=== PATIENT | female | born 1990 | race Caucasian/White ===

== ENCOUNTER → 2020-02-06 10:21 | Outpatient (CLI) | payer OTHER, SELFPAY ==
--- NOTE | ~2020-02-06 | US_ITS ---
EXAMINATION: US transvaginal DATE: 02/06/2020 10:42 INDICATION: Missing IUD strings TECHNIQUE: Multiple transabdominal and endovaginal sonographic images of the pelvis were obtained. COMPARISON: None. FINDINGS: The uterus measures 6.8 x 2.5 x 3.6 cm. A linear echogenic and shadowing IUD is seen centered within the endometrial complex which measures 5 mm in thickness. The right ovary measures 3.2 x 2.1 x 1.8 cm . The left ovary measures 2.5 x 1.9 x 1.5 cm. There is normal vascular flow in the ovaries. There is no free fluid in the pelvis. IMPRESSION: 1. Normal pelvic ultrasound with IUD in expected position within the endometrial canal. Reviewed, dictated and finalized at [facility]. NING AND DEVELOPMENT SPECIALIST IMPRESSION: 1. Normal pelvic ultrasound with IUD in expected position within the endometria l canal.
== END ==
PROVIDERS: Visit Provider Nurse Practitioner
DX: Z30.431 Encounter for routine checking of intrauterine contraceptive device (principal)
CPT/HCPCS: 76830

== ENCOUNTER 2021-03-06 16:20 | Outpatient (CLI) | payer OTHER, SELFPAY ==
--- NOTE | ~2021-03-06 | US_ITS ---
EXAMINATION: US pelvic complete w TV DATE: 03/06/2021 17:17 INDICATION: Pelvic pain Comparison:02/06/2020 TECHNIQUE: Multiple transabdominal and endovaginal sonographic images of the pelvis performed. FINDINGS: The uterus measures 7.2 x 3.9 x 3 cm. There is an IUD in the endometrium. The endometrial c omplex measures 4 mm. The right ovary measures 2.3 x 3.1 x 1.5 cm and the left ovary measures 2.4 x 2.9 x 1.5 cm. There ar e small follicles in each ovary. Normal doppler signal in both ovaries. There is no free fluid in the pelvis. There are no abnormal masses seen on either side. IMPRESSION: 1. Unremarkable pelvic ultrasound. IUD in expected position. Reviewed, dictated and finalized at location A. YOLOGY PROFESSOR
== END 2021-03-06 16:21 | disposition home or self-care (01) ==
LOC: ANHIMG 16:26
PROVIDERS: PCP Physician Assistant Medical; Visit Provider Nurse Practitioner
DX: R10.2 Pelvic and perineal pain (principal); Z97.5 Presence of (intrauterine) contraceptive device
CPT/HCPCS: 76830; 76856

== ENCOUNTER 2022-01-16 08:32 | Outpatient (CLI) | payer OTHER, SELFPAY ==
[2022-01-16 09:24] LABS: Basophils Absolute Auto 0.1 K/mm3 (0.0-0.1); Basophils Percent Auto 0.6 % (0.2-1.2); Eosinophils Absolute Auto 0.2 K/mm3 (0-0.3); Eosinophils Percent Auto 2.7 % (0-4.4); Hematocrit 39.8 % (37.0-47.0); Hemoglobin 13.6 g/dL (12.0-15.0); Immature Granulocyte Absolute 0.03 K/mm3 (0.00-0.031); Immature Granulocyte Percent A 0.3 % (0-0.5); Lymphocytes Absolute Auto 2.74 K/mm3 (0.9-3.2); Lymphocytes Percent Auto 31.2 % (18.3-44.2); Mean Corpuscular HGB Conc 34.2 g/dl (32-36); Mean Corpuscular Hemoglobin 29.2 pg (26-34); Mean Corpuscular Volume 85.4 fl (80-100); Mean Platelet Volume 11.2 fl (7.4-10.4); Monocytes Absolute Auto 0.6 K/mm3 (0.1-0.6); Monocytes Percent Auto 7.3 % (2.6-8.5); Neutrophils Absolute Auto 5.1 K/mm3 (1.3-6.7); Neutrophils Percent Auto 57.9 % (45.5-73.1); Platelet Count Result 277 k/mm3 (150-375); Red Blood Count 4.66 M/mm3 (4.2-5.4); Red Cell Distribution Width 12.3 % (11.5-14.5); White Blood Count 8.8 K/mm3 (4.5-10.0)
[2022-01-16 09:36] LABS: Anion Gap 10 mmol/L (8-16); Blood Urea Nitrogen 12 mg/dL (7-17); Carbon Dioxide 28 mmol/L (22-30); Chloride 101 mmol/L (98-107); Cholesterol 172 mg/dL (0-200); Estimated Glomerular Filt Rate > 60; Glucose 99 mg/dL (65-110); HDL Direct 42 mg/dL; Potassium 4.1 mmol/L (3.4-5.0); Sodium 139 mmol/L (137-145); Triglycerides 119 mg/dL (<150)
[2022-01-16 09:46] LABS: LDL Cholesterol Direct 96 mg/dL
== END 2022-01-16 08:33 | disposition home or self-care (01) ==
LOC: ANHLAB 08:33
PROVIDERS: PCP Family Medicine; Visit Provider Physician Assistant Medical
DX: R00.2 Palpitations (principal); Z13.220 Encounter for screening for lipoid disorders
CPT/HCPCS: 36415; 80048; 80061; 84443; 85025

== ENCOUNTER 2022-06-12 13:08 | Outpatient (CLI) | payer OTHER, SELFPAY ==
--- NOTE | ~2022-06-12 | US_ITS ---
Pelvic ultrasound. Clinical History: IUD Technique: Realtime transabdominal and transvaginal scanning of the pelvis was performed. Color flow Doppler and Doppler spectral analysis were performed. Findings: The uterus is anteverted. IUD in satisfactory position. The endometrial stripe has a thickn ess of 3 mm. No focal mass is identified. The right ovary measures 2.6 x 1.2 x 1.6 cm. No significant right ovarian or adnexal mass is seen. The left ovary measures 2.7 x 1.9 x 1.9 cm. No significant left ovarian or adnexal mass is seen. Vascular flow present in both ovaries on Doppler spectral analysis. There is no evidence of free fluid in the cul de sac. Impression: IUD in satisfactory position. Reviewed, dictated and finalized at [facility]. Impression: IUD in satisfactory position.
[2022-06-12 14:54] LABS: HIV 1/2 Ab P24 Ag Result Negative (Negative)
[2022-06-12 15:09] LABS: Rapid Plasma Reagin Non-Reactive (NonReactive)
[2022-06-12 16:48] LABS: Hepatitis B Surface Antigen Negative (Negative)
[2022-06-12 16:54] LABS: HAV RESULT Negative (Negative); Hepatitis B Core IgM Result Negative (Negative)
[2022-06-12 17:06] LABS: Hepatitis C Virus Antibody Negative (Negative)
== END 2022-06-12 13:09 | disposition home or self-care (01) ==
PROVIDERS: PCP Family Medicine; Visit Provider Nurse Practitioner
DX: Z11.3 Encounter for screening for infections with a predominantly sexual mode of transmission (principal); Z97.5 Presence of (intrauterine) contraceptive device
CPT/HCPCS: 36415; 76830; 76856; 80074; 86592; 86703; G0432

== ENCOUNTER 2023-01-15 08:15 | Outpatient (CLI) | payer OTHER, SELFPAY ==
[2023-01-15 08:55] LABS: Basophils Absolute Auto 0.1 K/mm3 (0.0-0.1); Basophils Percent Auto 0.7 % (0.2-1.2); Eosinophils Absolute Auto 0.2 K/mm3 (0-0.3); Eosinophils Percent Auto 2.6 % (0-4.4); Hematocrit 41.3 % (37.0-47.0); Hemoglobin 13.6 g/dL (12.0-15.0); Immature Granulocyte Absolute 0.03 K/mm3 (0.00-0.031); Immature Granulocyte Percent A 0.4 % (0-0.5); Lymphocytes Absolute Auto 2.27 K/mm3 (0.9-3.2); Lymphocytes Percent Auto 31.6 % (18.3-44.2); Mean Corpuscular HGB Conc 32.9 g/dl (32-36); Mean Corpuscular Hemoglobin 28.9 pg (26-34); Mean Corpuscular Volume 87.9 fl (80-100); Mean Platelet Volume 11.5 fl (7.4-10.4); Monocytes Absolute Auto 0.5 K/mm3 (0.1-0.6); Neutrophils Absolute Auto 4.2 K/mm3 (1.3-6.7); Neutrophils Percent Auto 57.7 % (45.5-73.1); Platelet Count Result 228 k/mm3 (150-375); Red Cell Distribution Width 12.3 % (11.5-14.5); White Blood Count 7.2 K/mm3 (4.5-10.0)
[2023-01-15 09:05] LABS: Alanine Aminotransferase 16 U/L (6-35); Albumin Level 4.4 g/dL (3.5-5.1); Alkaline Phosphatase 69 U/L (38-126); Anion Gap 5 mmol/L (8-16); Aspartate Amino Transferase 20 U/L (14-36); Bilirubin,Total 0.6 mg/dL (0.2-1.3); Blood Urea Nitrogen 14 mg/dL (7-17); Calcium 9.2 mg/dL (8.4-10.2); Carbon Dioxide 28 mmol/L (22-30); Chloride 103 mmol/L (98-107); Cholesterol 174 mg/dL (0-200); Estimated Glomerular Filt Rate > 60; Glucose 109 mg/dL (65-110); HDL Direct 38 mg/dL; Potassium 4.1 mmol/L (3.4-5.0); Sodium 136 mmol/L (137-145); Triglycerides 129 mg/dL (<150)
[2023-01-15 09:17] LABS: LDL Cholesterol Direct 100 mg/dL
[2023-01-17 06:08] LABS: Insulin Level Total 12.3 uIU/mL (<=18.4)
[2023-01-18 15:30] LABS: Testosterone Free 2.3 pg/mL (0.1-6.4); Testosterone Total 19 ng/dL (2-45)
== END 2023-01-15 08:16 | disposition home or self-care (01) ==
PROVIDERS: PCP Family Medicine; Visit Provider Physician Assistant Medical
DX: E78.5 Hyperlipidemia, unspecified (principal); K21.9 Gastro-esophageal reflux disease without esophagitis; R00.2 Palpitations; R63.5 Abnormal weight gain; Z68.31 Body mass index [BMI] 31.0-31.9, adult; Z13.220 Encounter for screening for lipoid disorders
CPT/HCPCS: 36415; 80053; 80061; 83525; 84402; 84403; 84443; 85025

== ENCOUNTER 2023-03-19 09:50 | Outpatient (CLI) | payer OTHER, SELFPAY ==
[2023-03-19 10:24] LABS: Glucose 92 mg/dL (65-110)
== END 2023-03-19 09:51 | disposition home or self-care (01) ==
LOC: ANHLAB 09:51
PROVIDERS: PCP Family Medicine; Visit Provider Physician Assistant Medical
DX: R73.09 Other abnormal glucose (principal)
CPT/HCPCS: 36415; 82947

== ENCOUNTER 2023-06-11 07:50 | Outpatient (CLI) | payer OTHER, SELFPAY ==
--- NOTE | ~2023-06-11 | US_ITS ---
Pelvic ultrasound. Clinical History: Pelvic pain Technique: Realtime transabdominal and transvaginal scanning of the pelvis was performed. Color flow Doppler and Doppler spectral analysis were performed. Findings: The uterus is anteverted. The endometrial stripe has a thickness of 3 mm. IUD in satisfact ory position. No focal mass is identified. The right ovary measures 2.9 x 1.3 x 2.4 cm. No significant right ovarian or adnexal mass is seen. The left ovary measures 3.2 x 2.2 x 1.8 cm. No significant left ovarian or adnexal mass is seen. There is no evidence of free fluid in the cul de sac. Impression: IUD in place, otherwise unremarkable exam. Reviewed, dictated and finalized at location . Impression: IUD in place, otherwise unremarkable exam.
== END 2023-06-11 07:51 | disposition home or self-care (01) ==
PROVIDERS: PCP Family Medicine; Visit Provider Nurse Practitioner
DX: Z30.431 Encounter for routine checking of intrauterine contraceptive device (principal); R10.2 Pelvic and perineal pain
CPT/HCPCS: 76830; 76856

== ENCOUNTER 2024-01-02 09:21 | Outpatient (CLI) | payer OTHER, SELFPAY ==
[2024-01-02 09:59] LABS: Basophils Percent Auto 0.5 % (0.2-1.2); Eosinophils Absolute Auto 0.1 K/mm3 (0-0.3); Eosinophils Percent Auto 2.5 % (0-4.4); Hematocrit 41.7 % (37.0-47.0); Hemoglobin 14.4 g/dL (12.0-15.0); Immature Granulocyte Absolute 0.01 K/mm3 (0.00-0.031); Immature Granulocyte Percent A 0.2 % (0-0.5); Lymphocytes Absolute Auto 1.86 K/mm3 (0.9-3.2); Mean Corpuscular HGB Conc 34.5 g/dl (32-36); Mean Corpuscular Volume 89.7 fl (80-100); Mean Platelet Volume 11.1 fl (7.4-10.4); Monocytes Absolute Auto 0.5 K/mm3 (0.1-0.6); Monocytes Percent Auto 9.1 % (2.6-8.5); Neutrophils Absolute Auto 3.1 K/mm3 (1.3-6.7); Neutrophils Percent Auto 54.7 % (45.5-73.1); Platelet Count Result 236 k/mm3 (150-375); Red Blood Count 4.65 M/mm3 (4.2-5.4); Red Cell Distribution Width 12.4 % (11.5-14.5); White Blood Count 5.6 K/mm3 (4.5-10.0)
[2024-01-02 10:07] LABS: Prothrombin Time 14.1 Seconds (11.1-14.7)
[2024-01-02 10:57] LABS: Anion Gap 8 mmol/L (4-12); Blood Urea Nitrogen 12 mg/dL (7-17); Calcium 9.3 mg/dL (8.4-10.2); Carbon Dioxide 28 mmol/L (22-30); Chloride 101 mmol/L (98-107); Cholesterol 166 mg/dL (0-200); Estimated Glomerular Filt Rate > 60; Glucose 86 mg/dL (65-110); HDL Direct 45 mg/dL; Sodium 137 mmol/L (137-145); Triglycerides 108 mg/dL (<150)
[2024-01-02 11:08] LABS: LDL Cholesterol Direct 81 mg/dL
[2024-01-12 21:08] LABS: Factor V (Leiden) Mutation NEGATIVE
== END 2024-01-02 09:22 | disposition home or self-care (01) ==
PROVIDERS: PCP Family Medicine; Visit Provider Physician Assistant Medical
DX: R00.2 Palpitations (principal); R73.09 Other abnormal glucose; Z83.2 Family history of diseases of the blood and blood-forming organs and certain disorders involving the immune mechanism; Z13.220 Encounter for screening for lipoid disorders; E78.5 Hyperlipidemia, unspecified
CPT/HCPCS: 36415; 80048; 80061; 81241; 85025; 85610

== ENCOUNTER 2025-01-12 10:40 | Outpatient (CLI) | payer OTHER, SELFPAY ==
[2025-01-12 11:16] LABS: Hematocrit 40.4 % (37.0-47.0); Hemoglobin 13.7 g/dL (12.0-15.0); Immature Granulocyte Percent A 0.3 % (0-0.5); Lymphocytes Absolute Auto 2.22 K/mm3 (0.9-3.2); Mean Corpuscular HGB Conc 33.9 g/dl (32-36); Mean Corpuscular Hemoglobin 30.4 pg (26-34); Mean Corpuscular Volume 89.6 fl (80-100); Nucleated Red Blood Cells Absolute Auto 0.000 K/mm3 (0.0-0.012); Nucleated Red Blood Cells Perc 0.0 % (0.0-0.2); Platelet Count Result 259 k/mm3 (150-375); Red Blood Count 4.51 M/mm3 (4.2-5.4); White Blood Count 6.4 K/mm3 (4.5-10.0)
[2025-01-12 11:39] LABS: Anion Gap 7 mmol/L (4-12); Blood Urea Nitrogen 12 mg/dL (7-17); Calcium 8.6 mg/dL (8.4-10.2); Carbon Dioxide 28 mmol/L (22-30); Chloride 102 mmol/L (98-107); Cholesterol 187 mg/dL (0-200); Estimated Glomerular Filt Rate > 60; Glucose 95 mg/dL (65-110); HDL Direct 45 mg/dL; Potassium 4.0 mmol/L (3.4-5.0); Sodium 137 mmol/L (137-145); Triglycerides 62 mg/dL (<150)
--- OUTSIDE RECORDS SUMMARY | 2025-01-12 11:48 | XMS_ITS | Clinical Summary ---
Author Organization [facility] [address] Address [address] [place] [address] Care Team Providers Care Cabin Crew Name Role Phone Meme Lundberg Primary Care Provider [phone] Allergies No known active allergies Medications cetirizine 10 mg capsule Take 10 mg by mouth daily. Active melatonin tablet Take 3 mg by mouth nightly. Active fluticasone (FLONASE) 50 mcg/actuation nasal spray Administer 1 spray into each nostril daily. Active albuterol HFA (PROVENTIL HFA,VENTOLIN HFA,PROAIR HFA) 90 mcg/actuation inhaler Inhale 2 puffs every 6 (six) hours as needed for wheezing. Active omeprazole (PriLOSEC) 10 mg capsule Take 10 mg by mouth daily. Active raNITIdine (ZANTAC) 150 mg tablet Take 150 mg by mouth 2 (two) times a day. Active Active Problems Problem Noted Date Diagnosed Date Premature atrial contractions 11/17/2017 Palpitations 11/17/2017 Ectopic atrial rhythm 11/17/2017 Mild intermittent asthma without complication GERD (gastroesophageal reflux disease) 8 Medical History Medical History Date Comments Overweight Sinusitis Allergic rhinitis Acid indigestion Asthma Family History Medical History Relation Name Comments Atrial fibrillation Father Hypertension Father Hyperlipidemia Mother Relation Name Status Comments Father Alive Mother Alive Social History Tobacco Use Types Packs/Day Years Used Date Smoking Tobacco: Never Smokeless Tobacco: Never Alcohol Use Standard Drinks/Week Comments Yes 0 (1 standard drink = 0.6 oz pur e alcohol) Personal Safety Answer Date Recorded Getting School Help Needed Not on file 06/05 Comments Unknown Sex and Gender Information Value Date Recorded Sex Assigned at Not on file Legal Sex Female 4:12 PM [employer] Gender Identity Not on file Sexual Orientation Not on file Obstetrics History Last Filed Vital Signs Vital Sign Reading Time Taken Comments Blood Pressure 124/86 11/17/2017 11:51 AM CDT Pulse 76 11/17/2017 11:51 AM CDT Temperature - - Respiratory Rate - - Oxygen Saturation 98% 11/17/2017 11:51 AM CDT Inhaled Oxygen Concentration - - Weight 73.9 kg (163 lb) 11/17/2017 11:51 AM CDT Height 165.1 cm (5' 5) 11/17/2017 11:51 AM CDT Body Mass Index 27.12 11/17/2017 11:51 AM CDT Plan of Treatment Not on file Insurance [facility] [employer] Care Teams Cabin Crew Relationship Specialty Start Date End Date Meme Lundberg PA PCP - General Physician Man[employer] Development Specialist Manager 09/08/17
== END 2025-01-12 10:41 | disposition home or self-care (01) ==
LOC: ANHLAB 10:41
PROVIDERS: PCP Family Medicine; Visit Provider Physician Assistant Medical
DX: R73.09 Other abnormal glucose (principal); R00.2 Palpitations; F41.9 Anxiety disorder, unspecified; Z13.220 Encounter for screening for lipoid disorders; E78.5 Hyperlipidemia, unspecified
CPT/HCPCS: 36415; 80048; 80061; 85025